=== PATIENT | female | born 1980 | race Caucasian/White ===

== ENCOUNTER 2017-04-04 09:27 | Emergency (ER) | payer MEDICAID ==
[2017-04-04 10:34] VITALS: BMI 31.5
[2017-04-04 11:03] LABS: RBC URINE 4 /hpf (0-3); URINE BACTERIA RARE (<OCC); URINE BILIRUBIN NEGATIVE (NEGATIVE); URINE BLOOD NEGATIVE (NEGATIVE); URINE COLOR YELLOW (YELLOW); URINE GLUCOSE (UA) NEG (Normal); URINE KETONE TRACE mg/dL (NEGATIVE); URINE LEUKOCYTE ESTERASE NEG Leu/uL (Negative); URINE PROTEIN NEGATIVE (NEGATIVE); URINE UROBILINOGEN 0.2-1.0 mg/dL (0.2-1.0); WBC URINE 1 /hpf (0-5)
--- NOTE | 2017-04-04 13:41 | OBHP ---
Datetime: 04/04/2017 10:31 IP Adm Impression: , intrauterine IP Chief Complaint Other: lower abdominal pressure and cramping IP Admit Plan: Observation/Evaluation Admit Comment, IP Provider: G0 at 28.2 weeks IUP, presenting to [facility] for eval of lower abdominal pre ssure and intermittent cramping which started last night. Patient states the pressure lasts <30 secon ds and occurs roughly every 10- 15 min. Associated with some brownish vaginal spotting since last nig ht. No LOF, ctx, VB; states + FM Of note: Takes vaginal progesterone 200 mg daily, sees MFM Dr. Branch for shortened cervix: CLM measured every 2 weeks, last CLM seen in chart was 3.2 cm, patient states having an additional CLM d one 2 days ago which was 2.6cm. No records of last CLM PNC: shane garcia; shortened cervix, rest of PNC reviewed, WNL PMH: denies PSH: LEEP procedure in [facility] Meds: progesterone 200 mg daily per vagina Allergies:,NKDA SH: denies etoh, tob, drugs O: cat 1 strip, reactive, no ctx noted A/P IUP 28+weeks, shortened cervix cont FHR for now UA d/w Dr. Haresh Marion MD The patient was seen with rest and I agree within it patient denies any uterine contractions the v aginal bleeding patient feels well. Patient was advised to follow-up in [place] for family health. Pat ient to continue with cervical length measurements and follow-up with PMD in 1 week Extremities - PN: Normal Abdomen - PN: Normal Lungs - PN: Normal Heart - PN: Normal General - PN: Normal FHR - Baseline A Provider: 140 Gestation - Est Wks by US: 28.2 IP Hx Assessment: The History has been Reviewed and is Current EGA AdmitDate IP: 28.2 Vital Signs Provider: Reviewed IP Chief Complaint: Other NICHD Variability Prov Fetus A: Moderate 6-25bpm NICHD Accel Fetus A IP Provider: [id number] FHR Category Provider Fetus A: Category I
[2017-04-04 18:10] VITALS: BP 99/55; PULSE 91; RESP 14; TEMP 98.2
== END 2017-04-04 13:31 | disposition home or self-care (01) ==
LOC: H.EROB2 09:27
DX: O26.873 Cervical shortening, third trimester (principal); Z3A.28 28 weeks gestation of pregnancy; O47.03 False labor before 37 completed weeks of gestation, third trimester